=== PATIENT | male | born 1975 | race Caucasian/White ===

== ENCOUNTER 2021-09-13 12:16 | Emergency (ER) | payer OTHER ==
[~2021-09-13] VITALS: Ht 187.9 cm; Wt 124.7 kg
--- NOTE | 2021-09-13 12:20 | ED Chest Pain ---
General Chief Complaint: Chest Pain Stated Complaint: ABD/CHEST PAIN History of Present Illness Date Seen by Provider: Sep 13, 2021 Time Seen by Provider: 12:20 Initial Comments 46-year-old male presents with some epigastric and diffuse belly pain. Pain started around 530 this morning. He reports he feels Bloated and like if he can just have a bowel movement would get better. He reports he had just some mild tenderness and left upper abdomen/lower chest. He went to urgent care who was concerned with that so sent him here for further evaluation. Reports now the pain is mainly in the lower abdomen, constant. Patient denies any fever, chills. Reports that the pain was an 8 at the worst was down about a 5 after he took some ibuprofen at home. Allergies and Home Medications Allergies Coded Allergies: Penicillins (Verified Allergy, Unknown, 09/13/21) Patient Home Medication List Home Medication List Reviewed: Yes Review of Systems Review of Systems Constitutional: No chills, No fever Gastrointestinal: Abdominal Pain; Denies Diarrhea; Nausea; Denies Vomiting; Other ("Bloating") Genitourinary: No Symptoms Reported Musculoskeletal: no symptoms reported Skin: no symptoms reported Psychiatric/Neurological: No Symptoms Reported Endocrine: No Symptoms Reported Hematologic/Lymphatic: No Symptoms Reported Physical Exam Vital Signs Vital Signs - First Documented 09/13/21 12:25 Temp 36.3 Pulse 61 Resp 17 B/P (MAP) 149/99 (116) Pulse Ox 98 O2 Delivery Room Air Capillary Refill : Height, Weight, BMI Height: '" Weight: lbs. oz. kg; BMI Method: General Appearance: No Apparent Distress, WD/WN Neck: Non Tender, Supple Cardiovascular: Regular Rate, Rhythm, No Edema, Normal Peripheral Pulses Gastrointestinal: Non Tender, Soft; No Distended, No Guarding Extremity: Normal Capillary Refill, Normal Range of Motion, Non Tender Neurologic/Psychiatric: Alert, Oriented x3, No Motor/Sensory Deficits, Normal Mood/Affect Skin: Normal Color, Warm/Dry Progress/Results/Core Measures Results/Orders Lab Results Laboratory Tests Test 09/13/21 12:34 Range/Units White Blood Count 11.8 H 4.3-11.0 10^3/uL Red Blood Count 5.36 4.30-5.52 10^6/uL Hemoglobin 16.1 13.3-17.7 g/dL Hematocrit 47 40-54 % Mean Corpuscular Volume 88 80-99 fL Mean Corpuscular Hemoglobin 30 25-34 pg Mean Corpuscular Hemoglobin Concent 34 32-36 g/dL Red Cell Distribution Width 13.5 10.0-14.5 % Platelet Count 205 130-400 10^3/uL Mean Platelet Volume 10.8 9.0-12.2 fL Immature Granulocyte % (Auto) 1 % Neutrophils (%) (Auto) 81 H 42-75 % Lymphocytes (%) (Auto) 11 L 12-44 % Monocytes (%) (Auto) 7 0-12 % Eosinophils (%) (Auto) 1 0-10 % Basophils (%) (Auto) 1 0-10 % Neutrophils # (Auto) 9.5 H 1.8-7.8 10^3/uL Lymphocytes # (Auto) 1.3 1.0-4.0 10^3/uL Monocytes # (Auto) 0.8 0.0-1.0 10^3/uL Eosinophils # (Auto) 0.1 0.0-0.3 10^3/uL Basophils # (Auto) 0.1 0.0-0.1 10^3/uL Immature Granulocyte # (Auto) 0.1 0.0-0.1 10^3/uL Sodium Level 141 135-145 MMOL/L Potassium Level 4.7 3.6-5.0 MMOL/L Chloride Level 105 98-107 MMOL/L Carbon Dioxide Level 24 21-32 MMOL/L Anion Gap 12 5-14 MMOL/L Blood Urea Nitrogen 10 7-18 MG/DL Creatinine 0.95 0.60-1.30 MG/DL Estimat Glomerular Filtration Rate 99 BUN/Creatinine Ratio 11 Glucose Level 111 H 70-105 MG/DL Calcium Level 9.0 8.5-10.1 MG/DL Corrected Calcium 8.7 8.5-10.1 MG/DL Total Bilirubin 1.8 H 0.1-1.0 MG/DL Aspartate Amino Transf (AST/SGOT) 24 5-34 U/L Alanine Aminotransferase (ALT/SGPT) 33 0-55 U/L Alkaline Phosphatase 87 40-136 U/L C-Reactive Protein < 0.30 <0.50 MG/DL Total Protein 7.0 6.4-8.2 GM/DL Albumin 4.4 3.2-4.5 GM/DL Lipase 16 8-78 U/L My Orders Orders - LARRY MATA L DO Abdomen Flat & Upright/Decub (09/13/21 12:27) Cbc With Automated Diff (09/13/21 12:27) Comprehensive Metabolic Panel (09/13/21 12:27) Lipase (09/13/21 12:27) Ua Culture If Indicated (09/13/21 12:27) Crp Fs (09/13/21 12:27) Ns Iv 1000 Ml (Sodium Chloride 0.9%) (09/13/21 12:27) Famotidine Injection (Pepcid Injection) (09/13/21 12:27) Ed Iv/Invasive Line Start (09/13/21 12:27) Lidocaine 2% Viscous 15 Ml (Xylocaine Vi (09/13/21 13:30) Antacid Suspension (Mylanta Suspension (09/13/21 13:30) Sucralfate Tablet (Carafate Tablet) (09/13/21 13:33) Medications Given in ED Current Medications Medications Dose Ordered Sig/Jonathan Route Start Time Stop Time Status Last Admin Dose Admin Lidocaine HCl 15 ml ONCE ONCE PO 09/13/21 13:30 09/13/21 13:31 DC 09/13/21 13:40 15 ML Sucralfate 1 gm STK-MED ONCE .ROUTE 09/13/21 13:33 09/13/21 13:36 DC 09/13/21 13:40 1 GM Vital Signs/I&O 09/13/21 12:25 Temp 36.3 Pulse 61 Resp 17 B/P (MAP) 149/99 (116) Pulse Ox 98 O2 Delivery Room Air Progress Progress Note : Progress Note Patient labs show no acute significant findings. X-ray shows no significant abnormality. I suspect he has a mild gastritis. GI cocktail was given him some minimal relief. Recommend he use a bland diet for couple days, Maalox and famotidine. Patient stable discharged home Initial ECG Impression Date: Sep 13, 2021 Initial ECG Impression Time: 06:00 Initial ECG Rhythm: Normal Sinus Initial ECG Intervals: Normal Initial ECG Impression: Normal Comment no acute st or t wave changes Diagnostic Imaging Diagonstic Imaging: Xray Plain Films/CT/US/NM/MRI: abdomen Comments Date of Exam:09/13/21 ABDOMEN FLAT & UPRIGHT/DECUB ABDOMEN FLAT UPRIGHT/DECUB INDICATION: Abdominal discomfort COMPARISON: None available. TECHNIQUE: Supine AP view of the abdomen. FINDINGS: Nonobstructive bowel gas pattern. Small volume of stool in the right hemicolon is likely physiologic. No features of free intraperitoneal air. No abnormal soft tissue mineralizations. Normal regional skeleton. Visualized aspects in the lung bases are clear. IMPRESSION: No radiographic abnormality to account for patient's pain. Departure Impression Primary Impression: Gastritis Qualified Codes: K29.00 - Acute gastritis without bleeding Disposition: HOME, SELF-CARE Condition: Stable Departure-Patient Inst. Referrals: NO,LOCAL PHYSICIAN (PCP/Family) Primary Care Physician Patient Instructions: Gastritis (DC) Add. Discharge Instructions: Pepcid twice daily for the next week Maalox as needed Follow-up with your primary care provider if symptoms or not improving over the next few days All discharge instructions reviewed with patient and/or family. Voiced understanding. LARRY MATA DO Sep 13, 2021 12:20
[2021-09-13] MEDS ORDERED: FAMOTIDINE 20MG/2ML IV (PEPCID) IV STA (12:27)
[2021-09-13] MEDS ORDERED: NS IV 1000 ML 1,000 ML IV STA (12:27)
[2021-09-13 12:35] LABS: BASOPHILS # (AUTO) 0.1 10^3/uL (0.0-0.1); BASOPHILS % (AUTO) 1 % (0-10); EOSINOPHILS # (AUTO) 0.1 10^3/uL (0.0-0.3); EOSINOPHILS % (AUTO) 1 % (0-10); HEMATOCRIT 47 % (40-54); HEMOGLOBIN 16.1 g/dL (13.3-17.7); LYMPHOCYTES # (AUTO) 1.3 10^3/uL (1.0-4.0); LYMPHOCYTES % (AUTO) 11 % (12-44); MEAN CORPUSCULAR HEMOGLOBIN 30 pg (25-34); MEAN CORPUSCULAR HGB CONC 34 g/dL (32-36); MEAN CORPUSCULAR VOLUME 88 fL (80-99); MEAN PLATELET VOLUME 10.8 fL (9.0-12.2); MONOCYTES # (AUTO) 0.8 10^3/uL (0.0-1.0); MONOCYTES % (AUTO) 7 % (0-12); NEUTROPHILS # (AUTO) 9.5 10^3/uL (1.8-7.8); NEUTROPHILS % (AUTO) 81 % (42-75); PLATELET COUNT 205 10^3/uL (130-400); WHITE BLOOD COUNT 11.8 10^3/uL (4.3-11.0)
--- NOTE | 2021-09-13 12:50 | Diagnostic Imaging Report ---
ABDOMEN FLAT UPRIGHT/DECUB INDICATION: Abdominal discomfort COMPARISON: None available. TECHNIQUE: Supine AP view of the abdomen. FINDINGS: Nonobstructive bowel gas pattern. Small volume of stool in the right hemicolon is likely physiologic. No features of free intraperitoneal air. No abnormal soft tissue mineralizations. Normal regional skeleton. Visualized aspects in the lung bases are clear. IMPRESSION: No radiographic abnormality to account for patient's pain. Dictated by: Dictated on workstation # [id number]
[2021-09-13 12:56] LABS: ALANINE AMINOTRANSFERASE 33 U/L (0-55); ALBUMIN 4.4 GM/DL (3.2-4.5); ALKALINE PHOSPHATASE 87 U/L (40-136); BILIRUBIN,TOTAL 1.8 MG/DL (0.1-1.0); BUN/CREATININE RATIO 11; CARBON DIOXIDE 24 MMOL/L (21-32); CHLORIDE 105 MMOL/L (98-107); CREATININE SERUM 0.95 MG/DL (0.60-1.30); GFR ESTIMATED 99; GLUCOSE 111 MG/DL (70-105); LIPASE 16 U/L (8-78); POTASSIUM 4.7 MMOL/L (3.6-5.0); SODIUM 141 MMOL/L (135-145)
[2021-09-13] MEDS ORDERED: LIDOCAINE 2% VISCOUS 15 ML UDC PO ONE (13:30)
[2021-09-13] MEDS ORDERED: ANTACID SUSP 30 ML UDC (MYLANTA) PO ONE (13:30)
[2021-09-13] MEDS ORDERED: SUCRALFATE 1 GM (CARAFATE) TAB ONE (13:33)
[2021-09-13 14:00] VITALS: BP 139/85
== END 2021-09-13 14:01 | disposition home or self-care (01) ==
LOC: EDUNIT# 12:16 → ER FS 12:19
DX: K29.70 Gastritis, unspecified, without bleeding (principal)
CPT/HCPCS: 36415; 74019; 80053; 83690; 85025; 86141; 93005

== ENCOUNTER 2022-05-04 13:57 | Emergency (ER) | payer SELFPAY ==
[~2022-05-04] VITALS: Ht 187.9 cm; Wt 120.2 kg
[2022-05-04 14:00] VITALS: BP 152/88
[2022-05-04] MEDS ORDERED: KETO10TA PO (14:21)
[2022-05-04] MEDS ORDERED: ACHD5005 PO (14:21)
--- NOTE | 2022-05-04 14:24 | ED GI ---
General Chief Complaint: Abdominal/GI Problems Stated Complaint: EPIGASTRIC PAIN Nursing Triage Note: Patient reports he has had intermittent episodes of RUQ abdominal pain that radiates to his right upper back for 3-4 years. He states he was told he had gallstones in November of 2021, but has changed his diet and had been doing well. He states he had pain on Tuesday that resolved, then his pain returned with increased severity today. He states he took 2 (50 mg) tramadol 2 hours ago without relief. Source of Information: Patient, Family () Exam Limitations: No Limitations History of Present Illness Date Seen by Provider: May 04, 2022 Time Seen by Provider: 14:08 Initial Comments 46-year-old male presents to the emergency department today for right upper quadrant abdominal pain with radiation to his right parascapular region. He has had the pain off and on for about 3 to 4 years. In November 2021 he was told he had gallstones. He spoke with his primary doctor and he decided to change his diet and attempt to help. He has been doing fairly well but began to have episodes again around Rajesh time off and on. These were mild and self- limited. On Tuesday he had an episode of pain that lasted a couple of hours. Today he had an episode of pain that lasted another couple of hours and he decided to come in to be seen. It is the exact same pain he has been having off-and-on for the past several years. He denies any fevers or chills, nausea or vomiting. He had a ham sandwich this morning prior to the onset of his symptoms. No changes in bowel or bladder habits. He took to 50 mg tramadol tablets about 2 hours prior to arrival. At present the pain is starting to lessen All other systems reviewed and negative except documented per HPI. Voice recognition software was used to help create this chart Allergies and Home Medications Allergies Coded Allergies: Penicillins (Verified Allergy, Unknown, 09/13/21) Patient Home Medication List Home Medication List Reviewed: Yes Review of Systems Review of Systems Constitutional: see HPI Past Wiktdcn-Bhvafz-Ttolwj Hx Patient Social History Tobacco Use?: No Substance use?: No Alcohol Use?: No Pt feels they are or have been: No Family Medical History Reviewed Nursing Family Hx No Pertinent Family Hx Physical Exam Vital Signs Vital Signs - First Documented 05/04/22 14:00 Temp 36.3 Pulse 62 Resp 16 B/P (MAP) 152/88 (109) Pulse Ox 100 O2 Delivery Room Air Capillary Refill : Less Than 3 Seconds Height/Weight/BMI Height: '" Weight: lbs. oz. kg; 34.00 BMI Method: General Appearance: WD/WN, no apparent distress HEENT: normal ENT inspection, pharynx normal Neck: non-tender, supple, normal inspection Respiratory: chest non-tender, lungs clear, normal breath sounds, no respiratory distress, no accessory muscle use Cardiovascular: regular rate, rhythm, no murmur Gastrointestinal: normal bowel sounds, soft, no organomegaly, tenderness (Tenderness palpation right upper quadrant. Positive Priest sign. No skin changes. Nonsurgical abdominal exam.) Extremities: normal range of motion, non-tender, normal inspection, no pedal edema, no calf tenderness Back: normal inspection, no CVA tenderness, no vertebral tenderness Neurologic/Psychiatric: alert, normal mood/affect, oriented x 3 Skin: normal color, warm/dry Progress/Results/Core Measures Results/Orders My Orders Orders - NINO QUICK DO Ketorolac Injection (Toradol Injection) (05/04/22 14:30) Vital Signs/I&O 05/04/22 14:00 Temp 36.3 Pulse 62 Resp 16 B/P (MAP) 152/88 (109) Pulse Ox 100 O2 Delivery Room Air Blood Pressure Mean: 109 Departure Communication (Admissions) Patient is hemodynamically stable. He has been having intermittent episodes similar to this off and on for several years, worsening in frequency and intensity. At present his pain is controlled and lessening, nearly gone at the time of evaluation. I went and gave him IM Toradol and recommended he maintain a bland diet. I will discharge her with p.o. Toradol, hydrocodone and general surgery follow-up. There is no indication for lab testing at this time there is no evidence for acute cholecystitis or other emergent medical condition. No evidence of pancreatitis, he is a nondrinker and has no other risk factors and symptoms not really consistent with that diagnosis. Impression Primary Impression: Biliary colic Disposition: 01 HOME, SELF-CARE Condition: Stable Departure-Patient Inst. Referrals: BRUNA BAKER MD (PCP) Primary Care Physician GLADYS SANON DO Patient Instructions: Gallstones (DC) Add. Discharge Instructions: Take the pain medication as prescribed. The ketorolac should not make you drowsy and you should not take other anti-inflammatory medications while you are taking this. The hydrocodone may make you drowsy so do not drive or make poor decisions while taking it. May also cause constipation so I recommend you get a stool softener and take it while using this. Regarding her pain, this is likely from gallstones. Maintain a bland diet until evaluated by general surgery. I recommend you call Dr. Sanon's office today to schedule a follow-up appointment. Return to the emergency department for any severe pain that is not self-limited or not tolerable with pain medication. Follow-up with your primary doctor for any nonemergent needs. All discharge instructions reviewed with patient and/or family. Voiced understanding. Scripts Hydrocodone/Acetaminophen (Hydrocodone-Acetamin 5-325 mg) 5 Mg-325 Mg Tablet 1 TAB PO Q4H PRN for PAIN-MODERATE (5-7) for 3 Days, #12 TAB Prov: NINO QUICK DO 05/04/22 Ketorolac Tromethamine (Ketorolac Tromethamine) 10 Mg Tablet 10 MG PO TID for Pain for 3 Days, #9 TAB Prov: NINO QUICK DO 05/04/22 NINO QUICK DO May 04, 2022 14:24
[2022-05-04] MEDS ORDERED: KETOROLAC 15 MG/ML VIAL IM ONE (14:30)
[2022-05-04] MEDS ORDERED: ANTACID SUSP 30 ML UDC (MYLANTA) PO ONE (14:45)
[2022-05-04] MEDS ORDERED: LIDOCAINE 2% VISCOUS 15 ML UDC PO ONE (14:45)
[2022-05-04] MEDS ORDERED: SUCRALFATE 1 GM (CARAFATE) TAB PO ONE (14:45)
[2022-05-04] MEDS ORDERED: HYDROcodone/APAP 5 MG/325 MG (LORTAB) TAB PO ONE (14:45)
== END 2022-05-04 14:30 | disposition home or self-care (01) ==
LOC: EDUNIT# 13:57 → ER FS 13:58
DX: K80.50 Calculus of bile duct without cholangitis or cholecystitis without obstruction (principal)
CPT/HCPCS: 99284

== ENCOUNTER 2022-05-13 05:38 | Outpatient (CLI) | payer BC ==
[~2022-05-13] VITALS: Ht 188 cm; Wt 119.3 kg
[~2022-05-13 05:38] MED LIST: ACHD5005 PO; KETO10TA PO
[2022-05-13] MEDS ORDERED: CLOB118S TP (17:17)
== END 2022-05-13 17:47 ==
LOC: PREOP 05:38
PROVIDERS: ATTEND Surgery
DX: Z01.818 Encounter for other preprocedural examination (principal); K80.20 Calculus of gallbladder without cholecystitis without obstruction

== ENCOUNTER 2022-05-20 08:53 | Day surgery (SDC) | payer BC ==
[~2022-05-20] VITALS: Ht 187.9 cm; Wt 119.3 kg
[2022-05-20] VITALS (11 sets, daily range): BP systolic 103–137; BP diastolic 73–97
[~2022-05-20 08:53] MED LIST changes: +CLOB118S TP
[2022-05-20] MEDS ORDERED: BUP/EPI 0.5% 1:200,000 (SENSORCAINE) 30 ML VIAL ONE (09:03)
[2022-05-20] MEDS ORDERED: ROCURONIUM 50 MG/5 ML (ZEMURON) VIAL IV ONE (09:28)
[2022-05-20] MEDS ORDERED: LIDOCAINE PF 2% 5 ML (XYLOCAINE) VIAL ONE (09:28)
[2022-05-20] MEDS ORDERED: proPOfol 200 MG/20 ML (DIPRIVAN) VIAL IV ONE (09:28)
[2022-05-20] MEDS ORDERED: MIDAZOLAM 2 MG/2 ML (VERSED) VIAL ONE (09:28)
[2022-05-20] MEDS ORDERED: ONDANSETRON 4 MG/2 ML (SDV) Z0FRAN ONE (09:28)
[2022-05-20] MEDS ORDERED: fentaNYL INJ 100 MCG/2 ML AMP ONE (09:28)
[2022-05-20] MEDS ORDERED: CLINDAMYCIN 600 MG/50 ML IVPB 50 ML IV ONE (09:30)
[2022-05-20] MEDS ORDERED: MIDAZOLAM 2 MG/2 ML (VERSED) VIAL IV ONE (09:30)
[2022-05-20] MEDS ORDERED: LACTATED RINGERS 1,000 ML IV PRN (09:30)
--- NOTE | 2022-05-20 09:30 | Progress Note-Pre Operative ---
Pre-Operative Progress Note Date H&P Reviewed: May 20, 2022 Time H&P Reviewed: 09:30 History & Physical: H&P Reviewed, Patient Examed, No changes noted Pre-Operative Diagnosis: cholelithiasis GLADYS SANON DO May 20, 2022 09:30
[2022-05-20] MEDS ORDERED: SEVOFLURANE (ULTANE) 15 ML INHAL SOLN ONE (10:55)
[2022-05-20] MEDS ORDERED: GLYCOPYRROLATE 0.2 MG/ML (ROBINUL) 2 ML VIAL ONE (11:02)
[2022-05-20] MEDS ORDERED: NEOSTIGMINE (BLOXIVERZ ) 1 MG/1ML 10 ML VIAL ONE (11:02)
--- NOTE | 2022-05-20 11:04 | Progress Note-Post Operative ---
Post-Operative Progess Note Surgeon (s)/Beater Out (s) Surgeon GLADYS SANON DO Beater Out: Dr. Briones to assist in retraction dissection and closure. Pre-Operative Diagnosis cholelithiasis Post-Operative Diagnosis cholelithiasis, chronic cholecystitis, hydrops gallbladder Procedure & Operative Findings Date of Procedure 05/20/22 Procedure Performed/Findings PROCEDURE: Laparoscopic cholecystectomy with intraoperative cholangiogram. COMPLICATIONS: None. PROCEDURE: The patient was taken to the operating suite and was prepped and draped in sterile fashion. A surgical pause was performed. Just superior to the umbilicus, a 12 mm incision was made. Dissection was taken down to the fascia, which was then scored and grasped with a Thelma and the abdomen was then entered. A 0 Vicryl suture was placed in a [id number] fashion and a Ordaz trocar was placed and secured. Pneumoperitoneum was achieved. A 5mm trochar place in the subxyphoid and 2 in the right upper quadrant. The gallbladder was then grasped and elevated. It was thickened with chronic cholecystitis features. Gallbladder wall was grabed and wall punctured with clear fluid coming from the gallbadder. The cystic duct, and cystic artery were then dissected out. Clip was placed on the distal portion of the cystic duct which was then partially transected. An arrow catheter was inserted into the duct. The cholangiogram was then performed. No filing defects and contrast made its way into the duodenum. Catheter removed. Clips were placed on proximal portion of the cystic duct and then the duct was then transected. Clips were placed along the proximal and distal portion of the cystic artery which was then transected. Hook cautery was used to dissect the gallbladder from the gallbladder fossa achieving hemostasis. The gallbladder was placed in an Endobag and removed through the 12 mm trocar site. The abdomen was then reinspected. Copious amounts of irrigation were used to irrigate the abdomen and there were no signs of active bleeding. Hemostasis had been achieved. A piece of surgicel was placed within the gallbladder fossa. The 12 mm fascial defect was then closed with 0 Vicryl suture that had been placed in a [id number] fashion. The abdomen was then desufflated, the trocars were removed. The abdomen was then washed and dried. The skin was then closed using 4-0 Monocryl in a subcuticular fashion. The abdomen was washed and dried and Skin Affix was place over incisions. Patient tolerated the procedure well without any complications and was taken to the recovery room in stable condition. Anesthesia Type general Estimated Blood Loss Estimated blood loss (mL): minimal Specimens/Packing Specimens Removed gallbladder Packing: surgicel GLADYS SANON DO May 20, 2022 11:04
[2022-05-20] MEDS ORDERED: ACHD5005 PO (11:05)
[2022-05-20] MEDS ORDERED: DOCU-143 PO (11:05)
--- NOTE | 2022-05-20 11:05 | Discharge Inst-Simple/Standard ---
Discharge Inst-Standard Discharge Medications New, Converted or Re-Newed RX: Transmitted to Pharmacy Patient Instructions/Follow Up Plan of Care/Instructions/FU: 2 weeks richmond Activity as Tolerated: No Discharge Diet: Regular Diet Other Inst to Patient Follow up Appt: Make appointment for 2 weeks. Instructions: No lifting greater than 10 pounds. No strenuous activity. May shower in 24 hours, no tub bath or soaking. Use incentive spirometer at home as directed. No Smoking Skin/Wound Care: You have special glue over incision, it will fall off on it's own. Symptoms to Report: Appetite Changes, Extremity Discoloration, Numbness/Tingling, Swelling Increased, Bleeding Excessive, Eyesight Changes, Pain Increased, Urine Color Change, Constipation(Persistent), Fever over 101 degree F, Pain/Pressure in chest, Urinating Difficulty, Cough Up/Vomit Blood, Heart Beat Irreg/Pounding, Pain/Pressure in jaw, Vaginal Bleeding Increase, Cramps in feet or legs, Lightheadedness, Pain/Pressure in shoulder, Diarrhea(Persistent), Memory Changes Suddenly, Questions/Concerns, Weight gain consecutive days, Dizziness/Fainting, Nausea/Vomiting, Shortness of Breath, Weight gain over 2 pounds. If eyes or skin turn yellow notify physician. If questions or concerns contact your physician Or seek help at emergency department. GLADYS SANON DO May 20, 2022 11:05
[2022-05-20] MEDS ORDERED: morphine INJ 10 MG/ML 1ML (SYR OR VIAL) IVP ONE (11:15)
[2022-05-20] MEDS ORDERED: ONDANSETRON 4 MG/2 ML (SDV) Z0FRAN IVP PRN (11:15)
--- NOTE | 2022-05-20 11:18 | Anesthesia-General Post-Op ---
General Patient Condition Mental Status/LOC: Same as Preop Cardiovascular: Satisfactory Nausea/Vomiting: Absent Respiratory: Satisfactory Pain: Controlled Complications: Absent Post Op Complications Complications None Follow Up Care/Instructions Patient Instructions None needed. Anesthesia/Patient Condition Patient Condition Patient is doing well, no complaints, stable vital signs, no apparent adverse anesthesia problems. No complications reported per nursing. ROCKY GUZMAN CRNA May 20, 2022 11:18
[2022-05-20] MEDS ORDERED: KETOROLAC 30 MG/ML VIAL ONE (11:20)
[2022-05-20] MEDS ORDERED: morphine INJ 10 MG/ML 1ML (SYR OR VIAL) ONE (11:21)
[2022-05-20] MEDS ORDERED: HYDROcodone/APAP 5 MG/325 MG (LORTAB) TAB ONE (13:03)
[2022-05-20] MEDS ORDERED: HYDROcodone/APAP 5 MG/325 MG (LORTAB) TAB PO ONE (13:15)
--- NOTE | 2022-05-20 13:15 | Diagnostic Imaging Report ---
INDICATION: Cholecystectomy, operative cholangiogram. Operative cholangiogram performed with the portable intensifier in surgery. 125 views are obtained, 24.3 seconds fluoroscopy time was used. Contrast injection performed through the cystic duct stump. There is a persistent filling defect in the common hepatic duct suspicious for a nonocclusive stone, less likely. Intrahepatic radicles are not appreciated. Contrast does pass to the duodenum without obstruction. IMPRESSION: The filling defect seen overlying the common hepatic duct, which may represent a nonocclusive stone or less likely unremarkable. The common bile duct appears patent with duodenum. Dictated by: Dictated on workstation # [id number]
== END 2022-05-20 13:32 | disposition home or self-care (01) ==
LOC: SDC 08:53
PROVIDERS: ATTEND Surgery
DX: K80.10 Calculus of gallbladder with chronic cholecystitis without obstruction (principal); K82.1 Hydrops of gallbladder; Z87.891 Personal history of nicotine dependence
CPT/HCPCS: 76000; 87081